=== PATIENT | female | born 1965 ===

== ENCOUNTER 2017-01-31 18:38 | Emergency (ER) | payer MEDICAID, OTHER ==
[2017-01-31 18:39] VITALS: BMI 43.0
[2017-01-31 21:27] LABS: BASO # 0.1 K/uL (0.0-0.2); BASO % 0.9 % (0.0-2.0); EOS # 0.2 K/uL (0.0-0.7); EOS % 2.4 % (0.0-4.0); HEMATOCRIT 41.2 % (34.0-47.0); LYMPH # 4.6 K/uL (1.0-4.3); LYMPH % 50.7 % (20.0-40.0); MEAN CELL VOLUME 85.2 fl (81.0-99.0); MEAN CORPUSCULAR HEMOGLOBIN 28.2 pg (27.0-31.0); MEAN CORPUSCULAR HGB CONC 33.1 g/dL (33.0-37.0); MONO # 0.4 K/uL (0.0-0.8); MONO % 4.8 % (0.0-10.0); NEUT # 3.7 K/uL (1.8-7.0); NEUT % 41.2 % (50.0-75.0); NRBC % 0.1 % (0.0-0.0); RED CELL DISTRIBUTION WIDTH 13.2 % (11.5-14.5)
[2017-01-31 21:47] LABS: RBC URINE 3 /hpf (0-3); URINE BACTERIA FEW (<OCC); URINE BILIRUBIN NEGATIVE (NEGATIVE); URINE BLOOD NEGATIVE (NEGATIVE); URINE COLOR YELLOW (YELLOW); URINE GLUCOSE (UA) NEG (Normal); URINE KETONE NEGATIVE (NEGATIVE); URINE LEUKOCYTE ESTERASE SMALL Leu/uL (Negative); URINE PROTEIN 30 mg/dL (NEGATIVE); URINE UROBILINOGEN 0.2-1.0 mg/dL (0.2-1.0); WBC URINE 2 /hpf (0-5)
[2017-01-31 22:01] LABS: ALB/GLOB RATIO 1.3 (1.0-2.1); ALKALINE PHOSPHATASE 58 U/L (38-126); ALT/SGPT 59 U/L (9-52); AST/SGOT 58 U/L (14-36); BILIRUBIN,TOTAL 0.6 mg/dl (0.2-1.3); BLOOD UREA NITROGEN 18 mg/dl (7-17); CALCIUM 9.7 mg/dL (8.4-10.2); CARBON DIOXIDE 29 mmol/L (22-30); CHLORIDE 100 mmol/L (98-107); GFR AFRICAN-AMERICAN > 60; GLUCOSE,RANDOM 84 mg/dL (65-105); LIPASE 57 U/L (23-300); POTASSIUM 3.7 MMOL/L (3.6-5.0); SODIUM 140 mmol/l (132-148); TOTAL PROTEIN 7.7 G/DL (6.3-8.2)
--- NOTE | 2017-01-31 23:00 | ED PDOC ---
HPI: Abdomen Time Seen by Provider: 01/31/17 23:09 Chief Complaint (Nursing): Back Pain Chief Complaint (Provider): flank pain History Per: Patient History/Exam Limitations: no limitations Additional Complaint(s): 51yo F obese and with HTN in ED c/o of right upper abd pain with radiation to back x 2 days but has noted the pain intermittent x 1 month-pt was seen at primary today and US shows gallstones without wall inflammation or obstruction. Pt still with RUQ pain and mild nausea no vomiting denies fever chills epigastria pain Past Medical History Reviewed: Historical Data, Nursing Documentation, Vital Signs Vital Signs: Last Vital Signs Temp 98.4 F 01/31/17 18:59 Pulse 100 H 01/31/17 18:59 Resp 16 01/31/17 18:59 BP 147/82 01/31/17 18:59 Pulse Ox 97 01/31/17 23:00 - Medical History PMH: Asthma, Back Problems, Gastritis, Gall Bladder Disease, GERD, Hiatal Hernia , HTN, Hypercholesterolemia, Hyperlipidemia Denies: CVA, Diabetes, HIV, Chronic Kidney Disease - Surgical History Surgical History: Tonsillectomy - Family History Family History: States: Unknown Family Hx - Home Medications Home Medications: Ambulatory Orders Medication Instructions Recorded Cholecalciferol (Vitamin D3) 2,000 unit PO DAILY 12/05/16 [Vitamin D3] Meclizine HCl [Motion Sickness 25 mg PO DAILY 12/05/16 Relief] Multivitamin [Multi-Vitamin Daily] 1 tab PO DAILY 12/05/16 [place]-3 Fatty Acids [[place]-3] 1,000 mg PO DAILY 12/05/16 Omeprazole 20 mg PO DAILY 12/05/16 Simvastatin 10 mg PO DAILY 12/05/16 Valsartan [Diovan] 80 mg PO DAILY 12/05/16 hydroCHLOROthiazide [Hydrodiuril] 25 mg PO DAILY 12/05/16 metFORMIN [glucOPHAGE] 500 mg PO BID #60 tab 12/06/16 Tramadol HCl [Ultram] 50 mg PO Q6 #15 tab 01/31/17 - Allergies Allergies/Adverse Reactions: Allergies Allergy/AdvReac Type Severity Reaction Status Date / Time No Known Allergies Allergy Verified 01/31/17 18:59 Review of Systems ROS Statement: Except As Marked, All Systems Reviewed And Found Negative Constitutional: Negative for: Fever, Chills Gastrointestinal: Positive for: Abdominal Pain. Negative for: Nausea, Vomiting , Diarrhea, Constipation, Melena Physical Exam - Reviewed Nursing Documentation Reviewed: Yes Vital Signs Reviewed: Yes - Physical Exam Appears: Positive for: Non-toxic, No Acute Distress Head Exam: Positive for: ATRAUMATIC, NORMAL INSPECTION, NORMOCEPHALIC Skin: Positive for: Normal Color, Warm, DRY Cardiovascular/Chest: Positive for: Regular Rate, Rhythm Respiratory: Positive for: CNT, Normal Breath Sounds Gastrointestinal/Abdominal: Positive for: Bowel Sounds, Soft, Tenderness (RUQ pain (+) murphys), Guarding. Negative for: Distended Back: Positive for: Normal Inspection. Negative for: L CVA Tenderness, R CVA Tenderness Extremity: Positive for: Normal ROM Neurologic/Psych: Positive for: Alert, Oriented - Laboratory Results Result Diagrams: 01/31/17 21:23 01/31/17 21:23 - ECG O2 Sat by Pulse Oximetry: 97 - CT Scan/US US Other Rad Studies (CT/US): Radiology Report Reviewed (gallstones) - Progress ED Course And Treament: impression: cholecystitis labs indlc lipase and US - Physician Consult Information Time Consulting Physican Contacted: 23:14 Physician Contacted: Jayme Munson Outcome Of Conversation: suggests if pt is in acute pain for admission if not f.u with oupt. Medical Decision Making Medical Decision Making: US shows gallstones however no evidence of wall inflammation or obstruction. pt not in acute pain at this time. pt agrees with d/c with f.u with GI specialist. pt well appearing however if with worsened pain to return to ED Disposition - Clinical Impression Clinical Impression: Gallstones - Patient ED Disposition Is Patient to be Admitted: No Discussed With : Jayme Munson Doctor Will See Patient In The: Office Counseled Patient/Family Regarding: Studies Performed, Diagnosis, Need For Followup, Rx Given - Disposition Referrals: Jayme Munson MD [Staff Provider] - Disposition: Routine/Home Disposition Time: 23:17 Condition: STABLE Prescriptions: Tramadol HCl [Ultram] 50 mg PO Q6 #15 tab Instructions: Cholecystitis (ED) - POA Present On Arrival: None
[2017-01-31 23:45] VITALS: BP 138/84; PULSE 82; RESP 17; TEMP 98.1; O2SAT 99
--- NOTE | 2017-02-01 09:52 | US ---
HISTORY: Right upper quadrant pain COMPARISON: None. TECHNIQUE: Grayscale imaging was performed. FINDINGS: LIVER: Enlarged and measures 20 cm in length. There is diffuse increased echogenicity and heterogeneous echotexture of the liver parenchyma. No mass. No intrahepatic bile duct dilatation. GALLBLADDER: There are 2 gallstones. No wall thickening or pericholecystic fluid. The sonographic Berrios's sign is positive. COMMON BILE DUCT: Measures 4.0 mm. No stones. No dilatation. PANCREAS: Unremarkable as visualized. No mass. No ductal dilatation. RIGHT KIDNEY: Measures 9.6 cm in length. Normal echogenicity. No calculus, mass, or hydronephrosis. AORTA: No aneurysmal dilatation. IVC: Unremarkable. OTHER FINDINGS: None . IMPRESSION: Hepatomegaly. Diffuse increased echogenicity and heterogeneous echotexture in the liver may reflect hepatic steatosis however parenchymal infectious/ inflammatory etiologies cannot be entirely excluded. Clinical and laboratory correlation is advised. Cholelithiasis. No sonographic evidence for cholecystitis. Positive sonographic Berrios's sign. Please correlate clinically for acute cholecystitis. A preliminary report was provided by [facility].
== END 2017-01-31 23:20 | disposition home or self-care (01) ==
LOC: H.ER 18:38
DX: R10.11 Right upper quadrant pain (principal); K80.20 Calculus of gallbladder without cholecystitis without obstruction; E78.00 Pure hypercholesterolemia, unspecified; I10 Essential (primary) hypertension; R11.0 Nausea; J45.909 Unspecified asthma, uncomplicated; K21.9 Gastro-esophageal reflux disease without esophagitis; Z79.84 Long term (current) use of oral hypoglycemic drugs; R16.0 Hepatomegaly, not elsewhere classified

== ENCOUNTER 2017-02-01 09:33 | Inpatient (IN) | payer MEDICAID ==
[2017-02-01 09:33] VITALS: BMI 43.0
[2017-02-01] MEDS ORDERED: Sodium Chloride 0.9% 1,000 ML IV STA (10:14)
--- NOTE | 2017-02-01 10:31 | ED PDOC ---
HPI: Abdomen Time Seen by Provider: 02/01/17 09:46 Chief Complaint (Nursing): Abdominal Pain Chief Complaint (Provider): Abd pain History Per: Patient History/Exam Limitations: no limitations Onset/Duration Of Symptoms: Days (Wed) Outside of [place] travel?: No Current Symptoms Are (Timing): Still Present Additional Complaint(s): Abd pain RUQ. Off and on. Came to the Ed yesterday and dc after feeling better. US showed gallstones. No nausea, vomit, diarrhea, weakness, headaches , dizziness, chest pain, dyspnea. Took ibuprofen for pain. Past Medical History Reviewed: Nursing Documentation, Vital Signs Vital Signs: Last Vital Signs Temp 97.8 F 02/01/17 09:47 Pulse 87 02/01/17 09:47 Resp 18 02/01/17 09:47 BP 147/98 H 02/01/17 09:47 Pulse Ox 99 02/01/17 10:50 - Medical History PMH: Asthma, Back Problems, Diabetes, Gastritis, Gall Bladder Disease, GERD, Hiatal Hernia, HTN, Hypercholesterolemia Denies: CVA, HIV, Chronic Kidney Disease - Surgical History Surgical History: Tonsillectomy - Family History Family History: States: Unknown Family Hx - Living Arrangements Living Arrangements: With Family - Social History Current smoker - smoking cessation education provided: No Alcohol: None Drugs: Denies - Home Medications Home Medications: Ambulatory Orders Medication Instructions Recorded Cholecalciferol (Vitamin D3) 2,000 unit PO DAILY 12/05/16 [Vitamin D3] Meclizine HCl [Motion Sickness 25 mg PO DAILY 12/05/16 Relief] Multivitamin [Multi-Vitamin Daily] 1 tab PO DAILY 12/05/16 [place]-3 Fatty Acids [[place]-3] 1,000 mg PO DAILY 12/05/16 Omeprazole 20 mg PO DAILY 12/05/16 Simvastatin 10 mg PO DAILY 12/05/16 Valsartan [Diovan] 80 mg PO DAILY 12/05/16 hydroCHLOROthiazide [Hydrodiuril] 25 mg PO DAILY 12/05/16 metFORMIN [glucOPHAGE] 500 mg PO BID #60 tab 12/06/16 Tramadol HCl [Ultram] 50 mg PO Q6 #15 tab 01/31/17 - Allergies Allergies/Adverse Reactions: Allergies Allergy/AdvReac Type Severity Reaction Status Date / Time No Known Allergies Allergy Verified 01/31/17 18:59 Review of Systems ROS Statement: Except As Marked, All Systems Reviewed And Found Negative Gastrointestinal: Positive for: Abdominal Pain Physical Exam - Reviewed Nursing Documentation Reviewed: Yes Vital Signs Reviewed: Yes - Physical Exam Appears: Positive for: Non-toxic, No Acute Distress Head Exam: Positive for: ATRAUMATIC, NORMAL INSPECTION, NORMOCEPHALIC Skin: Positive for: Normal Color, Warm, DRY Eye Exam: Positive for: EOMI, Normal appearance, PERRL ENT: Positive for: Normal ENT Inspection Neck: Positive for: Normal, Painless ROM Cardiovascular/Chest: Positive for: Regular Rate, Rhythm Respiratory: Positive for: CNT, Normal Breath Sounds Gastrointestinal/Abdominal: Positive for: Bowel Sounds, Soft, Tenderness (RUQ), Guarding Back: Positive for: Normal Inspection. Negative for: L CVA Tenderness, R CVA Tenderness Extremity: Positive for: Normal ROM. Negative for: Tenderness, Pedal Edema Neurologic/Psych: Positive for: Alert, Oriented - ECG O2 Sat by Pulse Oximetry: 99 Pulse Ox Interpretation: Normal - Progress ED Course And Treament: 1200: Stable. No call back from surgery. Will admit to medicine. Surgery resident aware and saw pt. Pt. aaox3. Will give zosyn. 1252: No call back from surgery. Dr. Banda called back. Will admit and give further orders when pt. reaches floor. Disposition - Clinical Impression Clinical Impression: Cholecystitis - Patient ED Disposition Is Patient to be Admitted: Yes Counseled Patient/Family Regarding: Studies Performed, Diagnosis - Disposition Disposition Time: 10:55 Condition: STABLE
[2017-02-01 11:53] LABS: BASO # 0.1 K/uL (0.0-0.2); BASO % 1.1 % (0.0-2.0); EOS # 0.2 K/uL (0.0-0.7); EOS % 2.9 % (0.0-4.0); HEMATOCRIT 40.4 % (34.0-47.0); LYMPH # 3.3 K/uL (1.0-4.3); LYMPH % 42.4 % (20.0-40.0); MEAN CELL VOLUME 85.1 fl (81.0-99.0); MEAN CORPUSCULAR HEMOGLOBIN 28.7 pg (27.0-31.0); MEAN CORPUSCULAR HGB CONC 33.8 g/dL (33.0-37.0); MEAN PLATELET VOLUME 9.5 fl (7.2-11.7); MONO # 0.4 K/uL (0.0-0.8); MONO % 4.6 % (0.0-10.0); NEUT # 3.8 K/uL (1.8-7.0); NRBC % 0.1 % (0.0-0.0); RED CELL DISTRIBUTION WIDTH 13.2 % (11.5-14.5); WHITE BLOOD COUNT 7.7 K/uL (4.8-10.8)
[2017-02-01 12:00] LABS: ALB/GLOB RATIO 1.1 (1.0-2.1); ALKALINE PHOSPHATASE 68 U/L (38-126); ALT/SGPT 36 U/L (9-52); AST/SGOT 67 U/L (14-36); BILIRUBIN,TOTAL 1.3 mg/dl (0.2-1.3); BLOOD UREA NITROGEN 20 mg/dl (7-17); CALCIUM 9.1 mg/dL (8.4-10.2); CARBON DIOXIDE 26 mmol/L (22-30); CHLORIDE 100 mmol/L (98-107); GFR AFRICAN-AMERICAN > 60; GLUCOSE,RANDOM 93 mg/dL (65-105); LIPASE 55 U/L (23-300); SODIUM 137 mmol/l (132-148); TOTAL PROTEIN 8.3 G/DL (6.3-8.2)
[2017-02-01 12:01] LABS: POTASSIUM 5.5 MMOL/L (3.6-5.0)
[2017-02-01] MEDS ORDERED: Piperacillin/Tazobact 3.375 GM in Sodium Chloride 0.9% 100 ML IV STA (12:03)
[2017-02-01 12:09] LABS: PARTIAL THROMBOPLASTIN TIME 29.2 SECONDS (23.3-32.5)
[2017-02-01] MEDS ORDERED: Piperacillin/Tazobact 3.375 gm Inj IVPB ONE (12:15)
--- NOTE | 2017-02-01 14:42 | CP.PCM.CON ---
<Pamela Araya - Last Filed: 02/01/17 14:38> History of Present Illness - History of Present Illness History of Present Illness: General Surgery - Dr. Wright 51 yo F w/ hx of HTN, DM, Asthma, Vertigo, presenting w/ RUQ abdominal pain x3days. Pt states the pain has been getting progressively worse. She came to ED yesterday and had RUQ U/S done which showed gallstones, however she felt better and was discharged home. Pt states that this morning the pain became worse again and she decided to return to ED. Pt admits to nausea, denies any vomiting, diarrhea, constipation, dysuria, hematura, fevers, chills, SOB or chest pains. PMH: HTN, DM, Vertigo, Asthma, GERD, HL PSH: Tubal ligation, Tonsillectomy Meds as per chart NKDA Pt was seen in the ED. Labs with hyperkalemia of 5.5, otherwise unremarkable. Vitals are stable and wnl. U/S from last night was reviewed which shows cholelithiasis. Review of Systems - Review of Systems All systems: reviewed and no additional remarkable complaints except (as per HPI ) Past Patient History - Infectious Disease Hx of Infectious Diseases: None - Past Medical History & Family History Past Medical History?: Yes - Past Social History Alcohol: None Drugs: Denies - CARDIAC Hx Hypercholesterolemia: Yes Hx Hypertension: Yes - PULMONARY Hx Asthma: Yes - NEUROLOGICAL Hx Neurological Disorder: Yes (VERTIGO) Hx Vertigo: Yes - HEENT Hx HEENT Problems: No - RENAL Hx Chronic Kidney Disease: No - ENDOCRINE/METABOLIC Hx Endocrine Disorders: No - HEMATOLOGICAL/ONCOLOGICAL Hx Human Immunodeficiency Virus (HIV): No - INTEGUMENTARY Hx Dermatological Problems: No - MUSCULOSKELETAL/RHEUMATOLOGICAL Hx Falls: No - GASTROINTESTINAL Hx Gall Bladder Disease: Yes Hx Gastritis: Yes - GENITOURINARY/GYNECOLOGICAL Hx Genitourinary Disorders: No - PSYCHIATRIC Hx Psychophysiologic Disorder: Yes Hx Anxiety: Yes Hx Substance Use: No - SURGICAL HISTORY Hx Tonsillectomy: Yes - ANESTHESIA Hx Anesthesia: Yes Hx Anesthesia Reactions: No Hx Malignant Hyperthermia: No Meds Allergies/Adverse Reactions: Allergies Allergy/AdvReac Type Severity Reaction Status Date / Time No Known Allergies Allergy Verified 01/31/17 18:59 - Medications Medications: Current Medications Sodium Chloride (Sodium Chloride 0.9%) 1,000 mls @ 125 mls/hr IV .Q8H JANUSZ Piperacillin Sod/Tazobactam (Sod 3.375 gm/ Sodium Chloride) 100 mls @ 100 mls/ hr IVPB Q6 JANUSZ Morphine Sulfate (Morphine) 4 mg IVP Q4 PRN PRN Reason: Pain, moderate (4-7) Ondansetron HCl (Zofran Inj) 4 mg IVP Q6 PRN PRN Reason: Nausea/Vomiting Physical Exam - Constitutional Appears: No Acute Distress - Head Exam Head Exam: ATRAUMATIC, NORMAL INSPECTION, NORMOCEPHALIC - Eye Exam Eye Exam: Normal appearance. absent: Scleral icterus - ENT Exam ENT Exam: Mucous Membranes Dry - Respiratory Exam Respiratory Exam: NORMAL BREATHING PATTERN. absent: Respiratory Distress - Cardiovascular Exam Cardiovascular Exam: REGULAR RHYTHM - GI/Abdominal Exam GI & Abdominal Exam: Soft, Tenderness (RUQ, + Berrios's sign). absent: Distended , Firm, Guarding, Rebound, Rigid - Neurological Exam Neurological exam: Alert, Oriented x3 - Psychiatric Exam Psychiatric exam: Normal Affect, Normal Mood - Skin Skin Exam: Dry, Intact Results - Vital Signs Recent Vital Signs: Last Vital Signs Temp 98 F 02/01/17 13:28 Pulse 85 02/01/17 13:28 Resp 14 02/01/17 13:28 BP 144/87 02/01/17 13:28 Pulse Ox 99 02/01/17 13:28 - Labs Result Diagrams: 02/01/17 11:41 02/01/17 11:41 - Imaging and Cardiology US - abdomen Status: Image reviewed by me, Report reviewed by me Assessment & Plan - Assessment and Plan (Free Text) Assessment: 51yo F with Cholelithiasis/Cholecystitis -Admitted to medical service -NPO, IVF -IV Abx and Pain control -Preop labs and EKG, Echo from 12/21 reviewed -Plan for OR Tomorrow 11AM for Cholecystectomy DW Dr. Adriana Araya PGY2 <Jacobo Wright - Last Filed: 02/06/17 21:24> Results - Vital Signs Recent Vital Signs: Last Vital Signs Temp 98.3 F 02/04/17 08:29 Pulse 90 02/04/17 08:29 Resp 20 02/04/17 08:29 BP 141/78 05/01/17 08:29 Pulse Ox 96 02/03/17 17:46 - Labs Result Diagrams: 02/04/17 06:00 02/04/17 06:00 Attending/Attestation - Attestation I have personally seen and examined this patient.: Yes I have fully participated in the care of the patient.: Yes I have reviewed all pertinent clinical information: Yes Notes (Text): 02/06/17 21:24 Pt was seen and examined at bedside on 02/02/17 Agree with above note and assessment Pt with Acute Cholecystitis with Cholelithiasis with Morbid Obesity Consent NPO,IVF Plan d.w pt and primary team in detail Risk and benefit explained in detail.
[2017-02-01] MEDS: Sodium Chloride 0.9% 1,000 ML IV SCH ×2 (18:51→22:45)
[2017-02-01] MEDS: Piperacillin/Tazobact 3.375 GM in Sodium Chloride 0.9% 100 ML IVPB SCH ×2 (21:25→22:11)
[2017-02-02] MEDS: Piperacillin/Tazobact 3.375 GM in Sodium Chloride 0.9% 100 ML IVPB SCH ×4 (04:18→21:14)
[2017-02-02] MEDS: Sodium Chloride 0.9% 1,000 ML IV SCH ×2 (06:45→14:43)
[2017-02-02 07:51] LABS: PARTIAL THROMBOPLASTIN TIME 26.5 SECONDS (23.3-32.5)
[2017-02-02 07:52] LABS: HEMATOCRIT 37.2 % (34.0-47.0); MEAN CELL VOLUME 85.2 fl (81.0-99.0); MEAN CORPUSCULAR HEMOGLOBIN 28.4 pg (27.0-31.0); MEAN CORPUSCULAR HGB CONC 33.3 g/dL (33.0-37.0); RED CELL DISTRIBUTION WIDTH 13.1 % (11.5-14.5); WHITE BLOOD COUNT 6.6 K/uL (4.8-10.8)
[2017-02-02 08:14] LABS: ALB/GLOB RATIO 1.2 (1.0-2.1); ALKALINE PHOSPHATASE 42 U/L (38-126); ALT/SGPT 49 U/L (9-52); AST/SGOT 32 U/L (14-36); BILIRUBIN,TOTAL 0.9 mg/dl (0.2-1.3); BLOOD UREA NITROGEN 17 mg/dl (7-17); CALCIUM 8.3 mg/dL (8.4-10.2); CARBON DIOXIDE 26 mmol/L (22-30); CHLORIDE 104 mmol/L (98-107); GFR AFRICAN-AMERICAN > 60; GLUCOSE,RANDOM 103 mg/dL (65-105); POTASSIUM 3.8 MMOL/L (3.6-5.0); SODIUM 139 mmol/l (132-148); TOTAL PROTEIN 6.6 G/DL (6.3-8.2)
[2017-02-02] MEDS ORDERED: Bupivacaine 0.5% Inj(30mL) ONE (10:55)
[2017-02-02] MEDS ORDERED: Lidocaine 1% Inj (20ml) ONE (10:55)
[2017-02-02] MEDS ORDERED: Rocuronium 10 mg/ml (5 ml) ONE (10:57)
[2017-02-02] MEDS ORDERED: Succinylcholine 200 mg/10 ml Inj IV ONE (10:57)
[2017-02-02] MEDS ORDERED: Propofol 10 mg/ml Inj (20 ML) ONE (10:57)
[2017-02-02] MEDS ORDERED: ePHEDrine 50 mg/ml Inj ONE (11:02)
[2017-02-02] MEDS ORDERED: Dexamethasone 4 mg/1 ml IVP PRN (11:21)
[2017-02-02] MEDS ORDERED: HYDROmorphone 0.5 mg/0.5 ml ISec IVP PRN (11:21)
--- NOTE | 2017-02-02 11:39 | CARD ---
APPROVED REPORT EKG Measurement Heart [id number] <Conclusion> Normal sinus rhythm with sinus arrhythmia Normal ECG
[2017-02-02] MEDS: Lactated Ringer's 1,000 ML IV SCH ×2 (12:47→20:00)
[2017-02-02] MEDS ORDERED: Lactated Ringer's 1,000 ML IV ONE (13:39)
--- NOTE | 2017-02-02 13:46 | PCM.SURG1 ---
Surgeon's Initial Post Op Note - Surgeon's Notes Surgeon: Adriana Press Hand: PGY3 Type of Anesthesia: General Endo Pre-Operative Diagnosis: Acute cholecystitis Operative Findings: Distended, inflamed gallbladder Post-Operative Diagnosis: Acute cholecystitis Operation Performed: Laparoscopic cholecystectomy Specimen/Specimens Removed: Gallbladded Estimated Blood Loss: EBL {In ML}: 10 Blood Products Given: N/A Drains Used: No Drains Post-Op Condition: Good Date of Surgery/Procedure: 02/02/17 Time of Surgery/Procedure: 12:20
[2017-02-02] MEDS ORDERED: Neostigmine Methylsulfate 2 MG/2 ML ML IV ONE (14:37)
[2017-02-02] MEDS ORDERED: Labetalol 5mg/ml (4ml) ONE (14:37)
--- NOTE | 2017-02-02 17:04 | OP ---
PROCEDURE DATE: 02/02/2017 PREOPERATIVE DIAGNOSES: Cholelithiasis and possible acute cholecystitis. POSTOPERATIVE DIAGNOSES: 1. Cholelithiasis and possible acute cholecystitis. 2. Morbid obesity. PROCEDURE PERFORMED: Laparoscopic cholecystectomy. SURGEON: Jacobo Wright M.D. ELECTRIC TOOL REPAIRER: Juanito Sears, PGY-3 resident. ANESTHESIA: General endotracheal tube anesthesia. ESTIMATED BLOOD LOSS: Around 10 mL. DRAINS: None. PATHOLOGY: Gallbladder with gallstone was sent for pathology. COMPLICATIONS: None. INTRAOPERATIVE FINDINGS: The patient had changes of acute cholecystitis and cholelithiasis and morbid obesity. INTRAOPERATIVE STEPS: This 51-year-old female was diagnosed with cholelithiasis and possible acute cholecystitis and patient was consented for the laparoscopic cholecystectomy, possible open. Brought to the OR, placed supine on the operating table. After induction of the anesthesia, abdomen was prepped and draped in a usual sterile fashion. Supraumbilical transverse 1.5 cm incision was made, skin and subcutaneous tissue, the fascia was incised. Fahad port was placed, pneumo was created. The 12 mm port was placed in the midline just below costal margin. Two 5 mm ports were placed in midclavicular and anterior axillary line and another 5 mm port was placed in the left upper quadrant for offender tract and grasper and dissector was introduced. Gallbladder appeared to be extremely edematous and thickened and aspiration of the gallbladder was done and the bite was sent to the table for the pathology. Gallbladder was retracted cranially, Calot triangle was exposed. The dissection of the cystic duct and cystic artery was done and top down approach was done from the mid part of the gallbladder up to the Calot's triangle and the critical view of the safety was identified and cystic duct and cystic artery was clipped at 3 places and cut in between 2 clips near the gallbladder and gallbladder was dissected free from the gallbladder fossa, taken in EndoCatch bag, taken out through the umbilical port site and sent to the table for the pathology. There was a proper hemostasis in each and every part of the procedure. After suction irrigation of the gallbladder fossa and perihepatic area, all the ports were taken out under vision. Pneumo was deflated. Umbilical port site was closed in 2 layers, the fascia with 0 Vicryl interrupted sutures, the skin with a 4-0 Monocryl. Dry sterile dressing was applied. The patient tolerated the procedure well. Count of instruments and gauze was correct. There was no apparent complication. The patient was sent to the postanesthesia care unit in stable condition. Jacobo Wright MD cc: [id number] TT: 02/02/2017 17:03:04 jn MTDD
--- NOTE | 2017-02-02 20:06 | CP.PCM.HP ---
History of Present Illness - History of Present Illness History of Present Illness: CC: Abdominal pain. 51 y/o F, returned to [facility] due to increased abdominal pain RUQ on DOA, Pt taking Ibuprofen with no relief. Abdominal pain RUQ was initially of severe intensity 8:10, sharp, on and off, radiating to lower L back, associated to nausea. Worsening symptoms: Morbid Obesity. Aggravated factor: Movements/exercise. Pt was seen in ER [facility] day [employer] [employer] 01/31/17 due to same symptoms, Abdominal U-S was done but after Pt felt better and was discharged. On DOA 02/01/17 AM, Pt had recurrent but worsening pain that bring her back to hospital. Pt denied: Fever, chills, vomiting, diarrhea, constipation, headache, urinary symptoms, CP, SOB, sick contact, recent travel. PMHx: Asthma, DM, Gallbladder disease, GERD, Gastritis, HTN, Hypercholesterolemia, Asthma, Vertigo, Anxiety. U-S Abdomen on 01/31/17 reported on 02/01, showed: Gallstones, Cholelithiasis, Berrios's sign, Acute Cholecystitis. Present on Admission - Present on Admission Any Indicators Present on Admission: No Review of Systems - Constitutional Constitutional: Other (Morbid obesity) - EENT Eyes: Other (negative) Ears: Other (negative) Nose/Mouth/Throat: Other (negative) - Cardiovascular Cardiovascular: Other - Respiratory Respiratory: Other (negative) - Gastrointestinal Gastrointestinal: Abdominal Pain, Nausea - Genitourinary Genitourinary: Other (negative) - Musculoskeletal Musculoskeletal: Back Pain - Integumentary Integumentary: Other (negative) - Neurological Neurological: Other (negative) - Psychiatric Psychiatric: Other (negative) - Endocrine Endocrine: Other (Morbid Obesity) - Hematologic/Lymphatic Hematologic: Other (negative) Past Patient History - Infectious Disease Hx of Infectious Diseases: None - Past Medical History & Family History Past Medical History?: Yes Pertinent Family History: Unknown - Past Social History Smoking Status: Former Smoker Alcohol: None Drugs: Denies Home Situation {Lives}: With Family - CARDIAC Hx Cardiac Disorders: Yes Hx Hypercholesterolemia: Yes Hx Hypertension: Yes - PULMONARY Hx Respiratory Disorders: Yes Hx Asthma: Yes Hx Sleep Apnea: Yes - NEUROLOGICAL Hx Neurological Disorder: Yes (VERTIGO) Hx Vertigo: Yes - HEENT Hx HEENT Problems: No - RENAL Hx Chronic Kidney Disease: No - ENDOCRINE/METABOLIC Hx Endocrine Disorders: Yes Hx Diabetes Mellitus Type 2: Yes Other/Comment: Morbid Obesity. - HEMATOLOGICAL/ONCOLOGICAL Hx Blood Disorders: No Hx Human Immunodeficiency Virus (HIV): No - INTEGUMENTARY Hx Dermatological Problems: No - MUSCULOSKELETAL/RHEUMATOLOGICAL Hx Musculoskeletal Disorders: No Hx Falls: No - GASTROINTESTINAL Hx Gastrointestinal Disorders: Yes Hx Gall Bladder Disease: Yes Hx Gastritis: Yes Hx Gastroesophageal Reflux: Yes - GENITOURINARY/GYNECOLOGICAL Hx Genitourinary Disorders: No - PSYCHIATRIC Hx Psychophysiologic Disorder: Yes Hx Anxiety: Yes Hx Substance Use: No - SURGICAL HISTORY Hx Surgeries: Yes Hx Hysterectomy: Yes (due to cyst) Hx Tonsillectomy: Yes - ANESTHESIA Hx Anesthesia: Yes Hx Anesthesia Reactions: No Hx Malignant Hyperthermia: No Has any member of the family had a problem w/ anesthesia?: No Meds Allergies/Adverse Reactions: Allergies Allergy/AdvReac Type Severity Reaction Status Date / Time No Known Allergies Allergy Verified 01/31/17 18:59 Physical Exam - Constitutional Appears: No Acute Distress - Head Exam Head Exam: NORMAL INSPECTION - Eye Exam Eye Exam: PERRL - ENT Exam ENT Exam: Normal Oropharynx - Neck Exam Neck exam: Positive for: Normal Inspection - Respiratory Exam Respiratory Exam: NORMAL BREATHING PATTERN - Cardiovascular Exam Cardiovascular Exam: REGULAR RHYTHM - GI/Abdominal Exam GI & Abdominal Exam: Normal Bowel Sounds, Tenderness (RUQ, + Berrios's sign.). absent: Guarding, Rebound - Extremities Exam Extremities exam: Positive for: normal inspection - Back Exam Back exam: NORMAL INSPECTION - Neurological Exam Neurological exam: Alert, Oriented x3 Additional comments: No motor sensory deficit. - Psychiatric Exam Psychiatric exam: Normal Mood - Skin Skin Exam: Warm Results - Vital Signs Recent Vital Signs: Last Vital Signs Temp 98.4 F 02/02/17 18:30 Pulse 87 02/02/17 18:30 Resp 18 02/02/17 18:30 BP 123/76 02/02/17 18:30 Pulse Ox 97 02/02/17 18:30 reviewed Julieta - Labs Result Diagrams: 02/03/17 06:30 02/03/17 06:00 Labs: Laboratory Results - last 24 hr 02/01/17 02/01/17 02/02/17 15:10 23:26 05:30 WBC 6.6 RBC 4.36 Hgb 12.4 Hct 37.2 MCV 85.2 MCH 28.4 MCHC 33.3 RDW 13.1 Plt Count 209 PT INR APTT Sodium Potassium Chloride Carbon Dioxide Anion Gap BUN Creatinine Est GFR ( Amer) Est GFR (Non-Af Amer) POC Glucose (mg/dL) 74 116 H Random Glucose Calcium Total Bilirubin AST ALT Alkaline Phosphatase Total Protein Albumin Globulin Albumin/Globulin Ratio Serum HCG, Qual 02/02/17 02/02/17 02/02/17 05:30 05:30 06:46 WBC RBC Hgb Hct MCV MCH MCHC RDW Plt Count PT 11.0 INR 1.06 APTT 26.5 Sodium 139 Potassium 3.8 Chloride 104 Carbon Dioxide 26 Anion Gap 13 BUN 17 Creatinine 1.0 Est GFR ( Amer) > 60 Est GFR (Non-Af Amer) 58 POC Glucose (mg/dL) 111 H Random Glucose 103 Calcium 8.3 L Total Bilirubin 0.9 AST 32 ALT 49 Alkaline Phosphatase 42 Total Protein 6.6 Albumin 3.6 Globulin 3.0 Albumin/Globulin Ratio 1.2 Serum HCG, Qual 02/02/17 02/02/17 02/02/17 07:30 10:56 15:45 WBC RBC Hgb Hct MCV MCH MCHC RDW Plt Count PT INR APTT Sodium Potassium Chloride Carbon Dioxide Anion Gap BUN Creatinine Est GFR ( Amer) Est GFR (Non-Af Amer) POC Glucose (mg/dL) 134 H 146 H Random Glucose Calcium Total Bilirubin AST ALT Alkaline Phosphatase Total Protein Albumin Globulin Albumin/Globulin Ratio Serum HCG, Qual Negative reviewed J.P. - EKG Data EKG comments: Reviewed J.P. - Imaging and Cardiology US - abdomen Status: Report reviewed by me (from 01/31/17 J.P.) Assessment & Plan (1) Acute cholecystitis Status: Acute Priority: High (2) HTN (hypertension) Status: Chronic Priority: Medium (3) Diabetes mellitus Status: Chronic Priority: Medium - Assessment and Plan (Free Text) Plan: Zosyn, Dilaudid, Morphin IV, continue NPO, clear for Lap Pam today. - Date & Time Date: 02/02/17 Time: 09:00
[2017-02-03] MEDS: Piperacillin/Tazobact 3.375 GM in Sodium Chloride 0.9% 100 ML IVPB SCH ×4 (03:08→21:12)
[2017-02-03] MEDS: Lactated Ringer's 1,000 ML IV SCH ×2 (05:34→12:24)
[2017-02-03 08:25] LABS: HEMATOCRIT 35.8 % (34.0-47.0); MEAN CELL VOLUME 86.2 fl (81.0-99.0); MEAN CORPUSCULAR HEMOGLOBIN 28.4 pg (27.0-31.0); MEAN CORPUSCULAR HGB CONC 32.9 g/dL (33.0-37.0); WHITE BLOOD COUNT 8.5 K/uL (4.8-10.8)
[2017-02-03 08:44] LABS: ALB/GLOB RATIO 1.1 (1.0-2.1); ALKALINE PHOSPHATASE 43 U/L (38-126); ALT/SGPT 63 U/L (9-52); AST/SGOT 56 U/L (14-36); BILIRUBIN,TOTAL 0.7 mg/dl (0.2-1.3); BLOOD UREA NITROGEN 12 mg/dl (7-17); CALCIUM 8.1 mg/dL (8.4-10.2); CARBON DIOXIDE 25 mmol/L (22-30); CHLORIDE 105 mmol/L (98-107); GFR AFRICAN-AMERICAN > 60; GLUCOSE,RANDOM 110 mg/dL (65-105); POTASSIUM 3.9 MMOL/L (3.6-5.0); SODIUM 138 mmol/l (132-148); TOTAL PROTEIN 6.5 G/DL (6.3-8.2)
--- NOTE | 2017-02-03 08:46 | CP.PCM.PN ---
<Pamela Araya - Last Filed: 02/03/17 08:44> Subjective - Date & Time of Evaluation Date of Evaluation: 02/03/17 Time of Evaluation: 08:44 - Subjective Subjective: General Surgery - Dr. Wright Pt S&Melvin MELENDEZ. Pt doing well postoperatively. She is tolerating liquid diet, ambulating within the room. She has mild soreness from incisions. No N/V, F/C , SOB/Cp. Objective - Vital Signs/Intake and Output Vital Signs (last 24 hours): Temp Pulse Resp BP Pulse Ox 98.5 F 88 20 107/67 98 02/03/17 07:58 02/03/17 07:58 02/03/17 07:58 02/03/17 07:58 02/03/17 07:58 - Medications Medications: Current Medications Hydromorphone HCl (Dilaudid) 0.5 mg IVP Q5M PRN PRN Reason: Pain, moderate (4-7) Last Admin: 02/02/17 14:50 Dose: 0.5 mg Piperacillin Sod/Tazobactam (Sod 3.375 gm/ Sodium Chloride) 100 mls @ 100 mls/ hr IVPB Q6 JANUSZ Last Admin: 02/03/17 03:08 Dose: 100 mls/hr Lactated Ringer's (Lactated Ringer's) 1,000 mls @ 125 mls/hr IV .Q8H JANUSZ Last Admin: 02/03/17 05:34 Dose: Not Given Morphine Sulfate (Morphine) 4 mg IVP Q4 PRN PRN Reason: Pain, moderate (4-7) Last Admin: 02/03/17 05:40 Dose: 4 mg Ondansetron HCl (Zofran Inj) 4 mg IVP Q6 PRN PRN Reason: Nausea/Vomiting Ondansetron HCl (Zofran Inj) 4 mg IVP ONCE PRN PRN Reason: Nausea/Vomiting Last Admin: 02/02/17 15:15 Dose: 4 mg Oxycodone/Acetaminophen (Percocet 5/325 Mg Tab) 2 tab PO Q4 PRN PRN Reason: Pain, moderate (4-7) Stop: 02/06/17 07:57 - Labs Labs: 02/03/17 06:30 02/02/17 05:30 PT 11.0 SECONDS (9.6-11.2) 02/02/17 05:30 INR 1.06 (0.92-1.08) 02/02/17 05:30 APTT 26.5 SECONDS (23.3-32.5) 02/02/17 05:30 - Constitutional Appears: No Acute Distress - Head Exam Head Exam: ATRAUMATIC, NORMAL INSPECTION, NORMOCEPHALIC - Eye Exam Eye Exam: Normal appearance - Respiratory Exam Respiratory Exam: NORMAL BREATHING PATTERN. absent: Respiratory Distress - GI/Abdominal Exam GI & Abdominal Exam: Soft. absent: Distended, Guarding, Tenderness, Rebound Additional comments: surgical incisions C/D/i with dressings - Neurological Exam Neurological Exam: Alert, Oriented x3 - Psychiatric Exam Psychiatric exam: Normal Affect, Normal Mood - Skin Skin Exam: Dry, Intact Assessment and Plan - Assessment and Plan (Free Text) Assessment: 51 yo F POD #1 s/p Lap cholecystectomy -Regular diet -Encourage OOb/Ambulation -PO pain control -Clear for discharge home later today if tolerating diet and ambulating -Discharge instructions d/w patient, she is to F/u with Dr. Wright in office in [address] Adriana Araya PGY2 <Jacobo Wright - Last Filed: 02/06/17 21:29> Objective - Vital Signs/Intake and Output Vital Signs (last 24 hours): Temp Pulse Resp BP Pulse Ox 98.3 F 90 20 141/78 96 02/04/17 08:29 02/04/17 08:29 02/04/17 08:29 02/04/17 08:29 02/03/17 17:46 - Labs Labs: 02/04/17 06:00 02/04/17 06:00 PT 11.0 SECONDS (9.6-11.2) 02/02/17 05:30 INR 1.06 (0.92-1.08) 02/02/17 05:30 APTT 26.5 SECONDS (23.3-32.5) 02/02/17 05:30 Attending/Attestation - Attestation I have personally seen and examined this patient.: Yes I have fully participated in the care of the patient.: Yes I have reviewed all pertinent clinical information, including history, physical exam and plan: Yes Notes (Text): 02/06/17 21:29 Pt was seen and examined at bedside on 02/03/17 Agree with above note and assessment
[2017-02-03] MEDS: Oxycodone/Acetaminophen 5/325 mg Tab PO PRN ×2 (16:46→21:15)
--- NOTE | 2017-02-03 16:47 | CP.PCM.PN ---
Subjective - Date & Time of Evaluation Date of Evaluation: 02/03/17 Time of Evaluation: 14:20 - Subjective Subjective: F/U S/P Lap Pam POD#1 Pt with no c/o, doing well, denied n/v/d. Objective - Vital Signs/Intake and Output Vital Signs (last 24 hours): Temp Pulse Resp BP Pulse Ox 98.5 F 88 20 107/67 98 02/03/17 07:58 02/03/17 07:58 02/03/17 07:58 02/03/17 07:58 02/03/17 07:58 - Medications Medications: Current Medications Hydromorphone HCl (Dilaudid) 0.5 mg IVP Q5M PRN PRN Reason: Pain, moderate (4-7) Last Admin: 02/02/17 14:50 Dose: 0.5 mg Piperacillin Sod/Tazobactam (Sod 3.375 gm/ Sodium Chloride) 100 mls @ 100 mls/ hr IVPB Q6 JANUSZ Last Admin: 02/03/17 09:07 Dose: 100 mls/hr Lactated Ringer's (Lactated Ringer's) 1,000 mls @ 125 mls/hr IV .Q8H JANUSZ Last Admin: 02/03/17 12:24 Dose: 125 mls/hr Morphine Sulfate (Morphine) 4 mg IVP Q4 PRN PRN Reason: Pain, moderate (4-7) Last Admin: 02/03/17 05:40 Dose: 4 mg Ondansetron HCl (Zofran Inj) 4 mg IVP Q6 PRN PRN Reason: Nausea/Vomiting Ondansetron HCl (Zofran Inj) 4 mg IVP ONCE PRN PRN Reason: Nausea/Vomiting Last Admin: 02/02/17 15:15 Dose: 4 mg Oxycodone/Acetaminophen (Percocet 5/325 Mg Tab) 2 tab PO Q4 PRN PRN Reason: Pain, moderate (4-7) Stop: 02/06/17 07:57 Last Admin: 02/03/17 16:46 Dose: 2 tab - Labs Labs: 02/03/17 06:30 02/03/17 06:00 PT 11.0 SECONDS (9.6-11.2) 02/02/17 05:30 INR 1.06 (0.92-1.08) 02/02/17 05:30 APTT 26.5 SECONDS (23.3-32.5) 02/02/17 05:30 - Constitutional Appears: No Acute Distress - Head Exam Head Exam: NORMAL INSPECTION - Eye Exam Eye Exam: PERRL - ENT Exam ENT Exam: Normal Oropharynx - Neck Exam Neck Exam: Normal Inspection - Respiratory Exam Respiratory Exam: NORMAL BREATHING PATTERN - Cardiovascular Exam Cardiovascular Exam: REGULAR RHYTHM - GI/Abdominal Exam GI & Abdominal Exam: Soft, Tenderness (mils small surgical incision.), Normal Bowel Sounds. absent: Guarding, Rebound - Extremities Exam Extremities Exam: Normal Inspection - Back Exam Back Exam: NORMAL INSPECTION - Neurological Exam Neurological Exam: Alert, Oriented x3. absent: Motor Sensory Deficit - Psychiatric Exam Psychiatric exam: Normal Mood - Skin Skin Exam: Warm Assessment and Plan (1) Status post laparoscopic cholecystectomy Status: Acute (2) HTN (hypertension) Status: Chronic (3) Diabetes mellitus Status: Chronic - Assessment and Plan (Free Text) Plan: Continue Morphine, Zosyn and rest of Tx.
[2017-02-03 17:47] VITALS: O2SAT 96
[2017-02-04] MEDS: Piperacillin/Tazobact 3.375 GM in Sodium Chloride 0.9% 100 ML IVPB SCH ×2 (03:29→09:43)
[2017-02-04 07:42] LABS: HEMATOCRIT 35.3 % (34.0-47.0); MEAN CELL VOLUME 85.6 fl (81.0-99.0); MEAN CORPUSCULAR HEMOGLOBIN 28.4 pg (27.0-31.0); MEAN CORPUSCULAR HGB CONC 33.2 g/dL (33.0-37.0); RED CELL DISTRIBUTION WIDTH 13.5 % (11.5-14.5); WHITE BLOOD COUNT 7.2 K/uL (4.8-10.8)
[2017-02-04 08:00] LABS: ALB/GLOB RATIO 1.1 (1.0-2.1); ALKALINE PHOSPHATASE 49 U/L (38-126); ALT/SGPT 65 U/L (9-52); AST/SGOT 48 U/L (14-36); BILIRUBIN,TOTAL 0.8 mg/dl (0.2-1.3); BLOOD UREA NITROGEN 11 mg/dl (7-17); CALCIUM 8.4 mg/dL (8.4-10.2); CARBON DIOXIDE 27 mmol/L (22-30); CHLORIDE 104 mmol/L (98-107); CHOLESTEROL 156 mg/dL (0-199); GFR AFRICAN-AMERICAN > 60; GLUCOSE,RANDOM 99 mg/dL (65-105); POTASSIUM 3.7 MMOL/L (3.6-5.0); SODIUM 139 mmol/l (132-148); TOTAL PROTEIN 6.4 G/DL (6.3-8.2)
[2017-02-04 08:05] LABS: T4 8.31 ug/dl (5.5-11.0)
[2017-02-04 08:19] LABS: THYROID STIMULATING HORMONE 3.13 mIU/ML (0.46-4.68)
[2017-02-04 08:29] VITALS: BP 141/78; PULSE 90; RESP 20; TEMP 98.3
[2017-02-04] MEDS: Oxycodone/Acetaminophen 5/325 mg Tab PO PRN (09:10)
--- NOTE | 2017-02-04 09:44 | CP.PCM.PN ---
Subjective - Date & Time of Evaluation Date of Evaluation: 02/04/17 Time of Evaluation: 07:25 - Subjective Subjective: General Surgery Pt S&E, NAEO. Mild soreness at incision sites. Tolerating diet, ambulating, using IS. Would like to go home today. Objective - Vital Signs/Intake and Output Vital Signs (last 24 hours): Temp Pulse Resp BP Pulse Ox 98.3 F 90 20 141/78 96 02/04/17 08:29 02/04/17 08:29 02/04/17 08:29 02/04/17 08:29 02/03/17 17:46 - Medications Medications: Current Medications Hydromorphone HCl (Dilaudid) 0.5 mg IVP Q5M PRN PRN Reason: Pain, moderate (4-7) Last Admin: 02/02/17 14:50 Dose: 0.5 mg Piperacillin Sod/Tazobactam (Sod 3.375 gm/ Sodium Chloride) 100 mls @ 100 mls/ hr IVPB Q6 JANUSZ Last Admin: 02/04/17 03:29 Dose: 100 mls/hr Lactated Ringer's (Lactated Ringer's) 1,000 mls @ 125 mls/hr IV .Q8H JANUSZ Last Admin: 02/03/17 12:24 Dose: 125 mls/hr Morphine Sulfate (Morphine) 4 mg IVP Q4 PRN PRN Reason: Pain, moderate (4-7) Last Admin: 02/03/17 05:40 Dose: 4 mg Ondansetron HCl (Zofran Inj) 4 mg IVP Q6 PRN PRN Reason: Nausea/Vomiting Ondansetron HCl (Zofran Inj) 4 mg IVP ONCE PRN PRN Reason: Nausea/Vomiting Last Admin: 02/02/17 15:15 Dose: 4 mg Oxycodone/Acetaminophen (Percocet 5/325 Mg Tab) 2 tab PO Q4 PRN PRN Reason: Pain, moderate (4-7) Stop: 02/06/17 07:57 Last Admin: 02/04/17 09:10 Dose: 2 tab - Labs Labs: 02/04/17 06:00 02/04/17 06:00 PT 11.0 SECONDS (9.6-11.2) 02/02/17 05:30 INR 1.06 (0.92-1.08) 02/02/17 05:30 APTT 26.5 SECONDS (23.3-32.5) 02/02/17 05:30 - Constitutional Appears: Non-toxic, No Acute Distress - Head Exam Head Exam: ATRAUMATIC, NORMOCEPHALIC - Eye Exam Eye Exam: EOMI. absent: Scleral icterus - Respiratory Exam Respiratory Exam: NORMAL BREATHING PATTERN. absent: Respiratory Distress - GI/Abdominal Exam GI & Abdominal Exam: Soft, Tenderness (mild at incision sites). absent: Distended, Firm, Guarding, Rigid Additional comments: incisions C/D/I - Neurological Exam Neurological Exam: Alert, Awake, Oriented x3 - Skin Skin Exam: Dry, Warm Assessment and Plan - Assessment and Plan (Free Text) Assessment: 51F POD #2 s/p Lap cholecystectomy Plan: Clear for DC from a surgical standpoint Discharge instructions d/w patient. F/U with Dr. Wright in office in 1 week DC with percocet and colace D/W Dr Adriana Sears PGY3
--- NOTE | 2017-02-04 16:17 | CP.PCM.PN ---
Subjective - Date & Time of Evaluation Date of Evaluation: 02/04/17 - Subjective Subjective: F/U Lap Pam POD # 2 Pt awake, no A/D, doing better, no c/o of abdominal pain now, ambulating into the room, family at bedside, tolerate lunch well. Objective - Vital Signs/Intake and Output Vital Signs (last 24 hours): Temp Pulse Resp BP Pulse Ox 98.3 F 90 20 141/78 96 02/04/17 08:29 02/04/17 08:29 02/04/17 08:29 02/04/17 08:29 02/03/17 17:46 - Labs Labs: 02/04/17 06:00 02/04/17 06:00 PT 11.0 SECONDS (9.6-11.2) 02/02/17 05:30 INR 1.06 (0.92-1.08) 02/02/17 05:30 APTT 26.5 SECONDS (23.3-32.5) 02/02/17 05:30 - Constitutional Appears: No Acute Distress - Head Exam Head Exam: NORMAL INSPECTION - Eye Exam Eye Exam: PERRL - ENT Exam ENT Exam: Normal Oropharynx - Neck Exam Neck Exam: Normal Inspection - Respiratory Exam Respiratory Exam: NORMAL BREATHING PATTERN - Cardiovascular Exam Cardiovascular Exam: REGULAR RHYTHM - GI/Abdominal Exam GI & Abdominal Exam: Soft, Tenderness (mild tenderness in small surgical incision site, dressing in place.), Normal Bowel Sounds - Extremities Exam Extremities Exam: Normal Inspection - Back Exam Back Exam: NORMAL INSPECTION - Neurological Exam Neurological Exam: Alert, Oriented x3. absent: Motor Sensory Deficit - Psychiatric Exam Psychiatric exam: Normal Mood - Skin Skin Exam: Warm Assessment and Plan (1) Status post laparoscopic cholecystectomy Status: Acute (2) HTN (hypertension) Status: Chronic (3) Diabetes mellitus Status: Chronic - Assessment and Plan (Free Text) Plan: Cleared for discharge from accounting consultant, improved and stable o be discharged, see instruction medication sheet, f/u with PMD and accounting consultant.
== END 2017-02-04 13:58 | disposition home or self-care (01) | DRG 493 ==
LOC: H.ER 09:33 → H.ERHOLD 13:19 → H.MEDSURG1 16:50
PROVIDERS: ADMIT Internal Medicine Pulmonary Disease; ATTEND Internal Medicine Pulmonary Disease
PROC: 0FT44ZZ Resection of Gallbladder, Percutaneous Endoscopic Approach (ICD-10-PCS; principal; 2017-02-02 11:00)
DX: K80.00 Calculus of gallbladder with acute cholecystitis without obstruction (principal); E87.5 Hyperkalemia; Z68.42 Body mass index [BMI] 45.0-49.9, adult; I10 Essential (primary) hypertension; E66.01 Morbid (severe) obesity due to excess calories; E11.9 Type 2 diabetes mellitus without complications; J45.909 Unspecified asthma, uncomplicated; K29.70 Gastritis, unspecified, without bleeding; K21.9 Gastro-esophageal reflux disease without esophagitis; E78.00 Pure hypercholesterolemia, unspecified; F41.9 Anxiety disorder, unspecified

== ENCOUNTER 2018-01-20 17:12 | Emergency (ER) | payer MEDICAID ==
[2018-01-20 17:13] VITALS: BMI 43.0
[2018-01-20 17:19] VITALS: BP 135/76; PULSE 98; RESP 20; TEMP 97.7; O2SAT 96
[2018-01-20 18:21] LABS: SQUAMOUS EPITHIAL 2 /hpf (0-5); URINE BACTERIA RARE (<OCC); URINE BILIRUBIN NEGATIVE (NEGATIVE); URINE BLOOD NEGATIVE (NEGATIVE); URINE CLARITY SLIGHTY-CLOUDY (Clear); URINE COLOR YELLOW (YELLOW); URINE GLUCOSE (UA) NEG (Normal); URINE LEUKOCYTE ESTERASE NEG Leu/uL (Negative); URINE PROTEIN 30 mg/dL (NEGATIVE); URINE UROBILINOGEN 0.2-1.0 mg/dL (0.2-1.0)
--- NOTE | 2018-01-20 18:36 | ED PDOC ---
Lower Extremity Pain/Injury Time Seen by Provider: 01/20/18 17:30 Chief Complaint (Nursing): Lower Extremity Problem/Injury Chief Complaint (Provider): Lower Extremity Problem/Injury History Per: Patient History/Exam Limitations: no limitations Onset/Duration Of Symptoms: Other (x1 week) Current Symptoms Are (Timing): Still Present Additional Complaint(s): Patient complains of left mid back pain described as on and off x 1week. Today pain is worse and constant, worse with movement. Has history of kidney stones many years ago. Pain is similar to when she had kidney stones, thus prompting ED. Otherwise: (-)nausea, (-) diarrhea, (-) fever, (-) melena, (-) hematochezia , (-) urinary symptoms, (-) trauma, (-) injury. Past Medical History Vital Signs: Last Vital Signs Temp 97.7 F 01/20/18 17:17 Pulse 98 H 01/20/18 17:17 Resp 20 01/20/18 17:17 BP 135/76 01/20/18 17:17 Pulse Ox 96 01/20/18 17:17 - Medical History PMH: Anxiety, Asthma, Back Problems, Diabetes, Gastritis, Gall Bladder Disease, GERD, Hiatal Hernia, HTN, Hypercholesterolemia, Hyperlipidemia, Kidney Stones, Sleep Apnea Denies: CVA, HIV, Chronic Kidney Disease - Surgical History Surgical History: Tonsillectomy - Family History Family History: States: Unknown Family Hx - Home Medications Home Medications: Ambulatory Orders Medication Instructions Recorded Cholecalciferol (Vitamin D3) 2,000 unit PO DAILY 12/05/16 [Vitamin D3] Multivitamin [Multi-Vitamin Daily] 1 tab PO DAILY 12/05/16 [place]-3 Fatty Acids [[place]-3] 1,000 mg PO DAILY 12/05/16 Omeprazole 20 mg PO DAILY 12/05/16 Valsartan [Diovan] 80 mg PO DAILY 12/05/16 hydroCHLOROthiazide [Hydrodiuril] 25 mg PO DAILY 12/05/16 metFORMIN [glucOPHAGE] 500 mg PO BID #60 tab 12/06/16 Albuterol HFA [Ventolin HFA 90 2 puff IH Q4H PRN 02/01/17 mcg/actuation (8 g)] Alprazolam [Xanax] 0.5 mg PO BID PRN 02/01/17 Latanoprost [Xalatan] 1 drop EACHEYE HS 02/01/17 Meclizine [Antivert] 12.5 mg PO DAILY 02/01/17 Simvastatin [Zocor] 20 mg PO QPM 02/01/17 oxyCODONE/Acetaminophen [Percocet 2 tab PO Q4 PRN #14 tab 02/04/17 5/325 mg Tab] Cyclobenzaprine [Cyclobenzaprine 10 mg PO TID PRN #15 tab 01/20/18 HCl] Meloxicam [Mobic] 15 mg PO DAILY #20 tab 01/20/18 - Allergies Allergies/Adverse Reactions: Allergies Allergy/AdvReac Type Severity Reaction Status Date / Time No Known Allergies Allergy Verified 01/20/18 17:16 Review of Systems ROS Statement: Except As Marked, All Systems Reviewed And Found Negative (As per HPI,otherwise negative) Constitutional: Negative for: Fever Gastrointestinal: Positive for: Abdominal Pain (Left flank pain). Negative for : Nausea, Diarrhea, Melena, Hematochezia Physical Exam - Reviewed Nursing Documentation Reviewed: Yes Vital Signs Reviewed: Yes - Physical Exam Comments: GENERAL APPEARANCE: Patient is awake, alert, oriented x 3, in no acute distress SKIN: Warm, dry; (-) cyanosis. EYES: (-) conjunctival pallor, (-) scleral icterus. ENMT: Mucous membranes moist. NECK: (-) tenderness, (-) stiffness, (-) lymphadenopathy. CHEST AND RESPIRATORY: (-) rales, (-) rhonchi, (-) wheezes; breath sounds equal bilaterally. HEART AND CARDIOVASCULAR: (-) irregularity; (-) murmur, (-) gallop. ABDOMEN AND GI: (-) distention. Bowel sounds active; (-) tenderness, (-) guarding, (-) rebound, (-) palpable masses, (-) CVA tenderness. BACK: (-) tenderness to midline spine, (+) point tenderness to parathoracic area. EXTREMITIES: (-) deformity, (-) edema, (+) distal pulses. NEURO AND PSYCH: Mental status as above; (-) focal findings. - ECG O2 Sat by Pulse Oximetry: 96 (RA) Pulse Ox Interpretation: Normal Medical Decision Making Medical Decision Making: Time: 17:51 Initial Impression: back pain, likely musculoskeletal pain, unlikely renal colic Plan: Toradol 60mg IM Urine culture Urinalysis Renal US UA: (-) for blood or infection. Time: 18:47 Renal US FINDINGS: RIGHT KIDNEY: Measures: 3.8 x 3.9 x 9.7 cm. Normal in size, contour and echogenicity. No stone, solid mass lesion or hydronephrosis visualized. LEFT KIDNEY: Measures: 3.1 x 4.7 x 10.5 cm. Normal in size, contour and echogenicity. No stone, solid mass lesion or hydronephrosis visualized. OTHER FINDINGS: None. IMPRESSION: Unremarkable renal sonogram. On reevaluation, patient is sitting comfortably in chair in no acute distress, reports other complaints at this time. Reports improvement of pain. UA and ultrasound results discussed with the patient in great detail. Patient notified of the diagnosis of musculoskeletal pain. Based on history, exam and diagnostic results plan will be for outpatient follow -up. Advised to follow up with primary care physician in 1-2 days without fail. Advised to take medication as prescribed. Return to the emergency room at any time for any new or worsening symptoms. Patient states she fully agrees with and understands discharge instructions. States that she agrees with the plan and disposition. Verbalized and repeated discharge instructions and plan. I have given the patient opportunity to ask any additional questions. Scribe Attestation: Documented by Alek Alvarado acting as a scribe for NANCY Zarate PA-C. MD Donnellye Attestation: All medical record entries made by the Scribe were at my direction and personally dictated by me. I have reviewed the chart and agree that the record accurately reflects my personal performance of the history, physical exam, medical decision making, and the department course for this patient. I have also personally directed, reviewed, and agree with the discharge instructions and disposition. Disposition - Clinical Impression Clinical Impression: Back pain - Patient ED Disposition Is Patient to be Admitted: No Counseled Patient/Family Regarding: Studies Performed, Diagnosis, Need For Followup, Rx Given - Disposition Disposition: Routine/Home Disposition Time: 19:15 Condition: IMPROVED Additional Instructions: Thank you for letting us take care of you today. You were treated for back pain. The emergency medical care you received today was directed at your acute symptoms. If you were prescribed any medication, please fill it and take as directed. It may take several days for your symptoms to resolve. Return to the Emergency Department if your symptoms worsen, do not improve, or if you have any other problems. Please contact your doctor in 2 days for re-evaluation and follow up. Bring any paperwork you were given at discharge with you along with any medications you are taking to your follow up visit. Our treatment cannot replace ongoing medical care by a primary care provider (PCP) outside of the emergency department. Thank you for allowing the [facility] team to be part of your care today. If you had a US: A Radiologist will review the ED reading if any change in treatment is needed we will contact you. If you had a urine culture: It will take several days for the results, if any change in treatment is needed we will contact you. Prescriptions: Cyclobenzaprine [Cyclobenzaprine HCl] 10 mg PO TID PRN #15 tab PRN Reason: Muscle Spasm Meloxicam [Mobic] 15 mg PO DAILY #20 tab Instructions: Upper Back Pain (DC) Forms: [employer] ([place]), [facility] ED School/Work Excuse - PA / [employer] OPERATOR / Resident Statement MD/DO has reviewed & agrees with the documentation as recorded.
--- NOTE | 2018-01-20 18:49 | US ---
PROCEDURE: Ultrasound of the Kidneys HISTORY: L flank pain COMPARISON: None available. TECHNIQUE: Sonogram of the kidneys. FINDINGS: RIGHT KIDNEY: Measures: 3.8 x 3.9 x 9.7 cm. Normal in size, contour and echogenicity. No stone, solid mass lesion or hydronephrosis visualized. LEFT KIDNEY: Measures: 3.1 x 4.7 x 10.5 cm. Normal in size, contour and echogenicity. No stone, solid mass lesion or hydronephrosis visualized. OTHER FINDINGS: None. IMPRESSION: Unremarkable renal sonogram.
== END 2018-01-20 19:45 | disposition home or self-care (01) ==
LOC: H.ER 17:12
DX: M54.9 Dorsalgia, unspecified (principal); R10.9 Unspecified abdominal pain; E11.9 Type 2 diabetes mellitus without complications; E78.00 Pure hypercholesterolemia, unspecified; Z79.84 Long term (current) use of oral hypoglycemic drugs; I10 Essential (primary) hypertension; K21.9 Gastro-esophageal reflux disease without esophagitis; Z87.442 Personal history of urinary calculi
CPT/HCPCS: 76770; 81003; 81025; 87086; 96372; 99283; J1885

== ENCOUNTER 2018-03-16 10:22 | Emergency (ER) | payer MEDICAID ==
[2018-03-16 10:26] VITALS: BMI 43.2
[2018-03-16 10:28] VITALS: BP 106/71; PULSE 97; RESP 16; TEMP 97.5
[2018-03-16 10:43] VITALS: O2SAT 98
[2018-03-16] MEDS ORDERED: Lidocaine 5% Patch TD STA (10:48)
--- NOTE | 2018-03-16 10:51 | ED PDOC ---
HPI: Back Time Seen by Provider: 03/16/18 10:41 Chief Complaint (Nursing): Back Pain History Per: Patient Onset/Duration Of Symptoms: Days (1) Current Symptoms Are (Timing): Still Present Quality Of Discomfort: Aching Severity: Moderate Pain Scale Rating Of: 4 Previous Symptoms: Back Pain Associated Symptoms: None Exacerbating Factor(s): Movement Additional Complaint(s): Right sided low back pain x 1 day after working yesterday. Radiates to front. No weakness or parasthesias. No urinary sxs. Past Medical History Vital Signs: Last Vital Signs Temp 97.5 F L 03/16/18 10:26 Pulse 97 H 03/16/18 10:26 Resp 16 03/16/18 10:26 BP 106/71 03/16/18 10:26 Pulse Ox 98 03/16/18 10:41 - Medical History PMH: Anxiety, Asthma, Back Problems, Diabetes, Gastritis, Gall Bladder Disease, GERD, Hiatal Hernia, HTN, Hypercholesterolemia, Hyperlipidemia, Kidney Stones, Sleep Apnea Denies: CVA, HIV, Chronic Kidney Disease - Surgical History Surgical History: Tonsillectomy - Family History Family History: States: Unknown Family Hx - Home Medications Home Medications: Ambulatory Orders Medication Instructions Recorded Cholecalciferol (Vitamin D3) 2,000 unit PO DAILY 12/05/16 [Vitamin D3] Multivitamin [Multi-Vitamin Daily] 1 tab PO DAILY 12/05/16 [place]-3 Fatty Acids [Eola-3] 1,000 mg PO DAILY 12/05/16 Omeprazole 20 mg PO DAILY 12/05/16 Valsartan [Diovan] 80 mg PO DAILY 12/05/16 hydroCHLOROthiazide [Hydrodiuril] 25 mg PO DAILY 12/05/16 metFORMIN [glucOPHAGE] 500 mg PO BID #60 tab 12/06/16 Albuterol HFA [Ventolin HFA 90 2 puff IH Q4H PRN 02/01/17 mcg/actuation (8 g)] Alprazolam [Xanax] 0.5 mg PO BID PRN 02/01/17 Latanoprost [Xalatan] 1 drop EACHEYE HS 02/01/17 Meclizine [Antivert] 12.5 mg PO DAILY 02/01/17 Simvastatin [Zocor] 20 mg PO QPM 04/28/17 oxyCODONE/Acetaminophen [Percocet 2 tab PO Q4 PRN #14 tab 02/04/17 5/325 mg Tab] Cyclobenzaprine [Cyclobenzaprine 10 mg PO TID PRN #15 tab 01/20/18 HCl] Meloxicam [Mobic] 15 mg PO DAILY #20 tab 01/20/18 Cyclobenzaprine [Cyclobenzaprine 10 mg PO Q8 #10 tab 03/16/18 HCl] Lidocaine 5% [Lidoderm] 1 ea TD DIN 10 Days #10 patch 03/16/18 Naproxen [Naprosyn] 500 mg PO Q12H #20 tab 03/16/18 - Allergies Allergies/Adverse Reactions: Allergies Allergy/AdvReac Type Severity Reaction Status Date / Time No Known Allergies Allergy Verified 03/16/18 10:40 Review of Systems Constitutional: Negative for: Fever Gastrointestinal: Negative for: Abdominal Pain Genitourinary Female: Negative for: Dysuria, Frequency Musculoskeletal: Positive for: Back Pain Neurological: Negative for: Weakness, Numbness Physical Exam - Physical Exam Appears: Positive for: Non-toxic, No Acute Distress Skin: Positive for: Normal Color, Warm, DRY Gastrointestinal/Abdominal: Positive for: Bowel Sounds, Soft. Negative for: Tenderness Back: Positive for: Normal Inspection, Muscle Spasm. Negative for: L CVA Tenderness, R CVA Tenderness, Vertebral Tenderness Neurologic/Psych: Positive for: Alert, Oriented. Negative for: Motor/Sensory Deficits - ECG O2 Sat by Pulse Oximetry: 98 - Progress Re-evaluation Time: 12:28 Condition: Improved Disposition - Clinical Impression Clinical Impression: Back strain - Patient ED Disposition Is Patient to be Admitted: No Counseled Patient/Family Regarding: Studies Performed, Diagnosis, Need For Followup, Rx Given - Disposition Referrals: [facility] [Outside] Disposition: Routine/Home Disposition Time: 12:28 Condition: FAIR Prescriptions: Cyclobenzaprine [Cyclobenzaprine HCl] 10 mg PO Q8 #10 tab Lidocaine 5% [Lidoderm] 1 ea TD DIN 10 Days #10 patch Naproxen [Naprosyn] 500 mg PO Q12H #20 tab Instructions: Muscle Strain Forms: [employer] (Yakut)
[2018-03-16] MEDS ORDERED: Lidocaine 5% Patch TD ONE (10:55)
== END 2018-03-16 12:45 | disposition home or self-care (01) ==
LOC: H.ER 10:22
DX: S39.012A Strain of muscle, fascia and tendon of lower back, initial encounter (principal); X50.9XXA Other and unspecified overexertion or strenuous movements or postures, initial encounter; Y99.0 Civilian activity done for income or pay; E11.9 Type 2 diabetes mellitus without complications; E78.00 Pure hypercholesterolemia, unspecified; F41.9 Anxiety disorder, unspecified; I10 Essential (primary) hypertension; J45.909 Unspecified asthma, uncomplicated; K21.9 Gastro-esophageal reflux disease without esophagitis; Z79.84 Long term (current) use of oral hypoglycemic drugs
CPT/HCPCS: 96372; 99283; J1885